=== PATIENT | male | born 1940 | race Caucasian/White ===

== ENCOUNTER 2022-07-11 16:38 | Inpatient (IN) | payer MEDICARE, OTHER ==
[~2022-07-11] VITALS: Ht 182.9 cm; Wt 73.5 kg
[2022-07-11] MEDS ORDERED: ACETAMINOPHEN 325MG TABLET PO ONE (18:45)
[2022-07-11 20:15] LABS: CHLORIDE 104 mEq/L (98-107)
[2022-07-11 20:21] LABS: BASOPHILS % 0.7 % (0.0-2.0); EOSINOPHILS % 1.9 % (0.0-5.0); HEMATOCRIT. 27.4 % (42.0-52.0); HEMOGLOBIN. 8.9 g/dL (14.0-18.0); LYMPHOCYTES % 15.7 % (20.0-50.0); MEAN CORPUSCULAR HEMOGLOBIN 26.1 pg (28.0-32.0); MEAN CORPUSCULAR VOLUME 80.3 fL (80.0-94.0); MEAN PLATELET VOLUME 8.3 fl (7.4-10.4); MONOCYTES % 6.4 % (2.0-8.0); NEUTROPHILS % 75.3 % (40.0-76.0); PLATELET 336 x1000/uL (130-400); RED BLOOD CELL COUNT 3.42 mill/uL (4.7-6.1); RED CELL DISTRIBUTION WIDTH 16.2 % (11.6-14.6)
[2022-07-11 21:05] LABS: CLARITY URINE CLOUDY (CLEAR); COLOR URINE RED (YELLOW); KETONES URINE NEGATIVE (NEGATIVE); LEUKOCYTE ESTERASE URINE 3+ (NEGATIVE); NITRITE URINE POSITIVE (NEGATIVE); OCCULT BLOOD URINE 2+ (NEGATIVE); PROTEIN URINE 2+ (NEGATIVE); SPECIFIC GRAVITY URINE 1.013 (1.005-1.030); UROBILINOGEN URINE 0.2 E.U./dL (0.2-1.0)
[2022-07-11] MEDS ORDERED: CEPH500C2 MT (22:05)
[2022-07-12] MEDS ORDERED: CEFTRIAXONE 1GM PREMIX 50 ML IV ONE (07:00)
[2022-07-12] MEDS ORDERED: CEFTRIAXONE 1GM PREMIX 50 ML IV SCH (09:00)
[2022-07-12] MEDS ORDERED: IPRATROPIUM/ALBUTEROL 0.5-3(2.5)MG/3ML NEB NEB PRN (09:30)
[2022-07-12] MEDS ORDERED: KETOROLAC 15MG/ML VIAL IV PRN (09:30)
[2022-07-12] MEDS ORDERED: DOCUSATE SODIUM 100MG CAPSULE PO PRN (09:30)
[2022-07-12] MEDS ORDERED: MAGNESIUM/ALUMINUM HYDROXIDE/SIMETHICONE 30ML UDC PO PRN (09:30)
[2022-07-12] MEDS ORDERED: CLONIDINE 0.1MG TABLET PO PRN (09:30)
[2022-07-12] MEDS ORDERED: GUAIFENESIN 200MG/10ML SUGAR FREE UDC PO PRN (09:30)
[2022-07-12] MEDS ORDERED: NITROGLYCERIN 0.4MG TABLET SL SL PRN (09:30)
[2022-07-12] MEDS ORDERED: ACETAMINOPHEN 325MG TABLET PO PRN ×2 (09:30)
[2022-07-12] MEDS ORDERED: ONDANSETRON HCL 4MG/2ML INJ IV PRN (09:30)
[2022-07-12] MEDS ORDERED: ZOLPIDEM TARTRATE 5MG TABLET PO PRN (09:30)
[2022-07-12 11:45] VITALS: BP 131/76
[2022-07-12] MEDS: CEFAZOLIN 1000MG PREMIX 50 ML IV SCH ×2 (14:00→22:11)
[2022-07-12] MEDS ORDERED: CEFAZOLIN 1000MG PREMIX 50 ML IV SCH (14:00)
[2022-07-12] MEDS ORDERED: ALBUTEROL (0.083%) 2.5MG/3ML NEB HHN PRN (16:45)
[2022-07-12] MEDS ORDERED: IPRATROPIUM BROMIDE (0.02%) 0.5MG/2.5ML NEB HHN PRN (16:45)
[2022-07-12 20:00] VITALS: BP 122/81
[2022-07-12] MEDS: FAMOTIDINE 20MG TABLET PO SCH (22:10)
[2022-07-12] MEDS: ASCORBIC ACID 500 MG TABLET PO SCH (22:11)
[2022-07-13] VITALS: BP 126/68
[2022-07-13 04:00] VITALS: BP 137/78
[2022-07-13] MEDS: CEFAZOLIN 1000MG PREMIX 50 ML IV SCH ×3 (05:26→22:17)
[2022-07-13 06:40] LABS: BASOPHILS % 0.9 % (0.0-2.0); EOSINOPHILS % 1.7 % (0.0-5.0); HEMOGLOBIN. 9.5 g/dL (14.0-18.0); LYMPHOCYTES % 9.3 % (20.0-50.0); MEAN CORPUSCULAR HEMOGLOBIN 26.1 pg (28.0-32.0); MEAN CORPUSCULAR VOLUME 79.4 fL (80.0-94.0); MEAN PLATELET VOLUME 8.1 fl (7.4-10.4); MONOCYTES % 7.7 % (2.0-8.0); NEUTROPHILS % 80.4 % (40.0-76.0); PLATELET 383 x1000/uL (130-400); RED BLOOD CELL COUNT 3.65 mill/uL (4.7-6.1); RED CELL DISTRIBUTION WIDTH 16.6 % (11.6-14.6)
[2022-07-13 08:23] LABS: CHLORIDE 101 mEq/L (98-107)
[2022-07-13 08:33] LABS: PHOSPHORUS 2.7 mg/dL (2.5-4.9)
[2022-07-13] MEDS: FAMOTIDINE 20MG TABLET PO SCH ×2 (11:20→22:16)
[2022-07-13] MEDS: ZINC SULFATE 220 MG ( 50 ) CAPSULE PO SCH (11:20)
[2022-07-13] MEDS: ASCORBIC ACID 500 MG TABLET PO SCH ×2 (11:20→21:00)
[2022-07-13 12:00] VITALS: BP 100/65
[2022-07-13 16:07] VITALS: BP 133/88
[2022-07-13 20:00] VITALS: BP 138/84
[2022-07-14] VITALS: BP 130/77
[2022-07-14 04:00] VITALS: BP 114/75
[2022-07-14] MEDS: CEFAZOLIN 1000MG PREMIX 50 ML IV SCH ×2 (05:13→22:32)
[2022-07-14 08:00] VITALS: BP 111/69
[2022-07-14] MEDS: ASCORBIC ACID 500 MG TABLET PO SCH ×2 (09:00→21:00)
[2022-07-14] MEDS: FAMOTIDINE 20MG TABLET PO SCH ×2 (11:01→21:00)
[2022-07-14] MEDS: ZINC SULFATE 220 MG ( 50 ) CAPSULE PO SCH (11:01)
[2022-07-14 12:00] VITALS: BP 125/80
[2022-07-14 16:00] VITALS: BP 105/66
[2022-07-14 20:00] VITALS: BP 131/69
[2022-07-15] VITALS: BP 127/89
[2022-07-15 04:00] VITALS: BP 104/70
[2022-07-15 08:00] VITALS: BP 150/76
[2022-07-15] MEDS: ZINC SULFATE 220 MG ( 50 ) CAPSULE PO SCH (08:57)
[2022-07-15] MEDS: ASCORBIC ACID 500 MG TABLET PO SCH ×2 (08:57→21:59)
[2022-07-15] MEDS: FAMOTIDINE 20MG TABLET PO SCH ×2 (08:57→21:59)
[2022-07-15] MEDS: LEVOFLOXACIN 500MG PREMIX 100 ML IV SCH (11:33)
[2022-07-15 12:00] VITALS: BP 110/71
[2022-07-15 16:00] VITALS: BP 140/89
[2022-07-15 20:00] VITALS: BP 108/72
[2022-07-16] VITALS: BP 114/72
[2022-07-16 04:00] VITALS: BP 121/77
[2022-07-16] MEDS: ASCORBIC ACID 500 MG TABLET PO SCH (08:35)
[2022-07-16] MEDS: ZINC SULFATE 220 MG ( 50 ) CAPSULE PO SCH (08:35)
[2022-07-16] MEDS: FAMOTIDINE 20MG TABLET PO SCH (08:35)
[2022-07-16] MEDS: LEVOFLOXACIN 500MG PREMIX 100 ML IV SCH (10:53)
[2022-07-16 12:00] VITALS: BP 122/84
[2022-07-16 13:26] VITALS: BP 19/122
== END 2022-07-16 14:30 | DRG 871 ==
LOC: ER 16:38 → ENRESERV 07-12 07:44 → 6EST 07-12 08:36 → EDBEDREQ 07-12 08:41 → EDBEDREQTM 07-12 08:41 → 6EST 07-12 11:30
PROVIDERS: ADMIT Internal Medicine; ATTEND Internal Medicine
DX: A41.9 Sepsis, unspecified organism (principal); E43 Unspecified severe protein-calorie malnutrition; D62 Acute posthemorrhagic anemia; N30.91 Cystitis, unspecified with hematuria; I10 Essential (primary) hypertension; R65.20 Severe sepsis without septic shock; E83.51 Hypocalcemia; Z66 Do not resuscitate; B96.1 Klebsiella pneumoniae [K. pneumoniae] as the cause of diseases classified elsewhere; E78.00 Pure hypercholesterolemia, unspecified; Z68.22 Body mass index [BMI] 22.0-22.9, adult; Z85.46 Personal history of malignant neoplasm of prostate; Z85.038 Personal history of other malignant neoplasm of large intestine; Z79.2 Long term (current) use of antibiotics; Z79.899 Other long term (current) drug therapy
CPT/HCPCS: 36415; 71045; 80048; 80053; 81003; 83735; 84100; 85025; 87186; 93005; 93970; 99285; A6261; J0690; J0696; J1956; A4315

== ENCOUNTER 2022-11-12 13:51 | Inpatient (IN) | payer MEDICARE, OTHER ==
[~2022-11-12] VITALS: Ht 182.9 cm; Wt 72.6 kg
[~2022-11-12 13:51] MED LIST: CEPH500C2 MT
[2022-11-12 13:56] VITALS: O2SAT 94
[2022-11-12 15:06] LABS: BASOPHILS % 0.6 % (0.0-2.0); EOSINOPHILS % 0.2 % (0.0-5.0); HEMATOCRIT. 29.1 % (42.0-52.0); HEMOGLOBIN. 9.4 g/dL (14.0-18.0); LYMPHOCYTES % 7.6 % (20.0-50.0); MEAN CORPUSCULAR HEMOGLOBIN 26.4 pg (28.0-32.0); MEAN CORPUSCULAR VOLUME 81.7 fL (80.0-94.0); MEAN PLATELET VOLUME 8.3 fl (7.4-10.4); MONOCYTES % 7.8 % (2.0-8.0); NEUTROPHILS % 83.8 % (40.0-76.0); PLATELET 430 x1000/uL (130-400); RED BLOOD CELL COUNT 3.56 mill/uL (4.7-6.1); RED CELL DISTRIBUTION WIDTH 19.9 % (11.6-14.6)
[2022-11-12 15:10] LABS: CLARITY URINE CLOUDY (CLEAR); COLOR URINE BLOODY (YELLOW)
[2022-11-12 15:10] LABS: CHLORIDE 93 mEq/L (98-107)
[2022-11-12 15:11] LABS: KETONES URINE 2+ (NEGATIVE); PROTEIN URINE 3+ (NEGATIVE)
[2022-11-12 15:12] LABS: LEUKOCYTE ESTERASE URINE 3+ (NEGATIVE); NITRITE URINE POSITIVE (NEGATIVE); OCCULT BLOOD URINE 3+ (NEGATIVE)
[2022-11-12 15:12] LABS: PROTHROMBIN TIME 10.6 sec (9.6-11.0)
[2022-11-12] MEDS ORDERED: CALCIUM CHLORIDE 1GM/10ML SYR IV ONE (15:30)
[2022-11-12] MEDS ORDERED: INSULIN REGULAR (HUMULIN R) 300UNITS/3ML VIAL IV ONE (15:30)
[2022-11-12] MEDS ORDERED: DEXTROSE 50% WATER 50ML SYRINGE IV ONE (15:30)
[2022-11-12] MEDS ORDERED: ALBUTEROL (0.083%) 2.5MG/3ML NEB HHN ONE (15:30)
[2022-11-12] MEDS ORDERED: CEFTRIAXONE 1GM PREMIX 50 ML IV ONE (15:30)
[2022-11-12] MEDS ORDERED: SODIUM BICARBONATE 8.4% 1 MEQ/ML 50ML SYR IV ONE (15:30)
[2022-11-12] MEDS ORDERED: IPRATROPIUM/ALBUTEROL 0.5-3(2.5)MG/3ML NEB NEB PRN (15:45)
[2022-11-12] MEDS ORDERED: GUAIFENESIN 200MG/10ML SUGAR FREE UDC PO PRN (15:45)
[2022-11-12] MEDS ORDERED: NITROGLYCERIN 0.4MG TABLET SL SL PRN (15:45)
[2022-11-12] MEDS ORDERED: ACETAMINOPHEN 325MG TABLET PO PRN ×2 (15:45)
[2022-11-12] MEDS ORDERED: DOCUSATE SODIUM 100MG CAPSULE PO PRN (15:45)
[2022-11-12] MEDS ORDERED: ZOLPIDEM TARTRATE 5MG TABLET PO PRN (15:45)
[2022-11-12] MEDS ORDERED: ONDANSETRON HCL 4MG/2ML INJ IV PRN (15:45)
[2022-11-12] MEDS ORDERED: MAGNESIUM/ALUMINUM HYDROXIDE/SIMETHICONE 30ML UDC PO PRN (15:45)
[2022-11-12] MEDS ORDERED: CLONIDINE 0.1MG TABLET PO PRN (15:45)
[2022-11-12] MEDS ORDERED: LEVOFLOXACIN 500MG PREMIX 100 ML IV NR (17:00)
[2022-11-12] MEDS ORDERED: SODIUM POLYSTYRENE SULFONATE 15 G/60 ML BOT PO NR (17:15)
[2022-11-12] MEDS ORDERED: SODIUM CHLORIDE 0.9% 1000ML BAG (SEPSIS BOLUS) IV ONE (19:00)
[2022-11-12 20:45] VITALS: BP 106/63; PULSE 114; RESP 18; TEMP 98.8
[2022-11-12] MEDS: ASCORBIC ACID 500 MG TABLET PO SCH (21:58)
[2022-11-13] VITALS: BP 97/65; PULSE 110; RESP 18; TEMP 98.2
[2022-11-13 04:00] VITALS: BP 102/59; PULSE 102; RESP 18; TEMP 98
[2022-11-13 08:00] VITALS: BP 80/53; PULSE 53; RESP 30; TEMP 98.1
[2022-11-13 08:21] LABS: BASOPHILS % 1.6 % (0.0-2.0); EOSINOPHILS % 0.1 % (0.0-5.0); HEMATOCRIT. 24.8 % (42.0-52.0); HEMOGLOBIN. 8.3 g/dL (14.0-18.0); LYMPHOCYTES % 20.3 % (20.0-50.0); MEAN CORPUSCULAR HEMOGLOBIN 27.1 pg (28.0-32.0); MEAN CORPUSCULAR VOLUME 81.1 fL (80.0-94.0); MEAN PLATELET VOLUME 9.4 fl (7.4-10.4); MONOCYTES % 0.8 % (2.0-8.0); NEUTROPHILS % 77.2 % (40.0-76.0); PLATELET 353 x1000/uL (130-400); RED BLOOD CELL COUNT 3.06 mill/uL (4.7-6.1); RED CELL DISTRIBUTION WIDTH 20.2 % (11.6-14.6)
[2022-11-13 08:51] LABS: CHLORIDE 96 mEq/L (98-107)
[2022-11-13 08:58] LABS: PHOSPHORUS 5.4 mg/dL (2.5-4.9)
[2022-11-13] MEDS ORDERED: ZINC SULFATE 220 MG ( 50 ) CAPSULE PO SCH (09:00)
[2022-11-13] MEDS ORDERED: PANTOPRAZOLE SODIUM 40 MG/VIAL IV SCH (09:00)
[2022-11-13] MEDS: ASCORBIC ACID 500 MG TABLET PO SCH (09:00)
[2022-11-13] MEDS ORDERED: MEROPENEM 1,000 MG in SODIUM CHLORIDE 0.9% 100 ML IV SCH (11:00)
[2022-11-13] MEDS ORDERED: VANCOMYCIN 1.25GM PMX (XELLIA) 250 ML IV NR (12:00)
[2022-11-13] MEDS ORDERED: LEVOFLOXACIN 250MG PREMIX 50 ML IV SCH (17:00)
[2022-11-14] MEDS ORDERED: SODIUM CHLORIDE 0.9% 1,000 ML IV NR (09:15)
== END 2022-11-13 15:45 | DRG 871 ==
LOC: ER 13:51 → EDBEDREQTM 15:36 → EDBEDREQ 15:36 → 7WST 21:46
PROVIDERS: ADMIT Internal Medicine; ATTEND Internal Medicine
DX: A41.9 Sepsis, unspecified organism (principal); E43 Unspecified severe protein-calorie malnutrition; D62 Acute posthemorrhagic anemia; E87.1 Hypo-osmolality and hyponatremia; N39.0 Urinary tract infection, site not specified; N17.9 Acute kidney failure, unspecified; Z66 Do not resuscitate; E78.00 Pure hypercholesterolemia, unspecified; E87.5 Hyperkalemia; R74.01 Elevation of levels of liver transaminase levels; I10 Essential (primary) hypertension; Z68.21 Body mass index [BMI] 21.0-21.9, adult; Z85.038 Personal history of other malignant neoplasm of large intestine; Z85.46 Personal history of malignant neoplasm of prostate
CPT/HCPCS: 36415; 80053; 81003; 82962; 83735; 84100; 85025; 87077; 87186; 93005; 99285; J0696; J1815; J1956; J2185; J3370; J3490; J7050